=== PATIENT | male | born 1970 | race Caucasian/White ===

== ENCOUNTER 2020-03-05 12:36 | Outpatient (CLI) | payer OTHER, SELFPAY ==
--- NOTE | 2020-03-05 12:43 | XRR_ITS ---
PROCEDURE INFORMATION: Exam: XR Right Shoulder Exam date and time: 03/05/2020 12:56 PM Age: 49 years old Clinical indication: Right shoulder pain TECHNIQUE: Imaging protocol: XR Right shoulder. Views: 2 or more views. COMPARISON: No relevant prior studies available. FINDINGS: Bones/joints: No fracture. No dislocation. The glenohumeral and acromioclavicular joints are normal. The acromiohumeral interval is normal. Soft tissues: No acute soft tissue abnormality. XR/XR shoulder RT min 2V* [id number] IMPRESSION: No osseous abnormality.
== END 2020-03-05 12:37 | disposition home or self-care (01) ==
LOC: RAD 12:40
PROVIDERS: PCP Family Medicine; Visit Provider Family Medicine
DX: M25.511 Pain in right shoulder (principal)
CPT/HCPCS: 73030

== ENCOUNTER 2020-04-23 18:41 | Inpatient (IN) | payer OTHER, SELFPAY ==
[2020-04-23 18:50] VITALS: BP 136/87; PULSE 62; RESP 18; TEMP 36.5; O2SAT 98; BMI 33.0
--- NOTE | 2020-04-23 19:59 | ED_ITS ---
HPI - Abdominal Pain General: Chief Complaint: Abdominal Pain Stated Complaint: mid abdominal pain Time Seen by Provider: 04/23/20 19:52 Source: patient Mode of arrival: ambulatory Limitations: no limitations History of Present Illness: HPI narrative: 49-year-old male states he started having abdominal pain all of a sudden 3 today. He states its mid abdomen and is sharp in nature. He states he had a kidney stone 15 years ago and this felt similar. Patient denies any vomiting or diarrhea. He denies any worsening improving factors. He states pain is currently a 9 out of 10. MD elicited complaint: abdominal pain Pertinent past history: none Onset (ago): hour(s) Pain Consistency: constant Location: None Severity: severe Quality: stabbing Radiation: none Migration to: no migration Associated Symptoms: Denies chills, dysuria and fever(s) Review of Systems Const: Denies: fever(s), chills, body aches or change in appetite Eyes: Denies: blurry vision or eye discomfort ENMT: Denies: throat pain or dental pain Card: Denies: chest pain Resp: Denies: dyspnea GI: Reports: abdominal pain : Denies: dysuria Musc: Denies: neck pain or back pain Skin/Breast: Denies: rash Neuro: Denies: headache(s) Psych: Denies: depression Carlos/Lymph: Denies: easy bruising All/Imm: Denies: urticaria Physical Exam Const: COMMON NORMALS: no acute distress, patient oriented x3 and healthy appearing HENMT: COMMON NORMALS: normocephalic and atraumatic HEAD & SCALP: normocephalic and atraumatic Eye: COMMON NORMALS: Equal, round and reactive pupils present and EOMs intact bilaterally PUPIL: Yes Equal, round and reactive pupils present Neck/C-Spine: COMMON NORMALS: full ROM and supple Chest: COMMONS NORMALS: normal inspection of the chest and normal palpation of entire chest wall Resp: COMMON NORMALS: normal respiratory effort, No retractions, No use of accessory muscles and clear to auscultation bilaterally AUSCULTATION: clear to auscultation bilaterally Cardio: COMMON NORMALS: regular rate, regular rhythm and No murmurs present (Cardio) RATE: regular rate RHYTHM: regular rhythm GI: COMMON NORMALS: Normal to inspection, nondistended, normoactive bowel sounds present, Soft to palpation, non-tender and no masses PALPATION: Yes So ft to palpation Extremity: COMMON NORMALS: normal to inspection and full ROM Neuro: COMMON NORMALS: patient oriented x3, moves all extremities and no focal motor deficits Psych: COMMON NORMALS: mental status grossly normal, Normal thought process present and cooperative THOUGHT PROCESS: Normal thought process present Skin: COMMON NORMALS: no rashes or lesions noted and no wounds GENERAL SKIN EXAM: no rashes or lesions noted Course Vital Signs: Vital signs: Vital Signs Temperature 97.7 F 04/23/20 18:50 Pulse Rate 62 04/23/20 18:50 Respiratory Rate 22 H 04/23/20 21:08 Blood Pressure 136/87 04/23/20 18:50 Pulse Oximetry 99 04/23/20 21:08 MDM - Abdominal Pain MDM Narrative: Medical decision making narrative: Bill presents here with abdominal pain and CT shows small bowel obstruction. We will place an NG tube down. Patient's blood work here is normal there is no signs of perforation. I spoke to the hospitalist will admit at this time. Lab Data: Labs: Lab Results 04/23/20 04/23/20 04/23/20 Range/Units 21:00 21:00 21:05 WBC 9.5 (4.0-10.0) 10^3/ uL RBC 5.08 (4.1-5.3) 10^6/u L Hgb 15.9 (11.7-16.6) g/dL Hct 47.0 (42.0-52.0) % MCV 92.5 (80-94) fL MCH 31.3 (28.0-34.0) pg MCHC 33.8 (30.0-36.0) g/dL RDW 12.0 L (12.1-15.1) % Plt Count 274 (130-400) 10^3/c mm MPV 8.6 (7.4-10.4) fL Neut % (Auto) 79.0 % Lymph % (Auto) 18.0 % Iroquois % (Auto) 3.0 % Eos % (Auto) 0.0 % Baso % (Auto) 0.0 % Lymph # (Auto) Not Reportable Iroquois # (Auto) Not Reportable Sodium 134 L (136-145) mmol/L Potassium 3.9 (3.5-5.1) mmol/L Chloride 97 L (98-107) mmol/L Carbon Dioxide 28 (22-29) mmol/L Anion Gap 12.9 (5-19) BUN 13 (6-20) mg/dL Creatinine 0.8 (0.7-1.2) mg/dL GFR Calculation 101.9 (90-130) mL/min Glucose 96 (65-115) mg/dL Calculated Osmolal ity 278 L (285-295) mOsm/k g Calcium 10.3 (8.5-10.5) mg/dL Total Bilirubin 0.4 (0.15-1.2) mg/dL AST 25 (0-40) U/L ALT 20 (0-41) U/L Alkaline Phosphata se 63 (40-130) IU/L Total Protein 7.7 (6.6-8.7) g/dL Albumin 4.9 (3.5-5.2) g/dL Globulin 2.8 (1.3-4.6) g/dL Lipase 17 (13-60) U/L Urine Color Yellow (Yellow) Urine Appearance Cloudy A (CLEAR) Urine pH 9 H (5-7) Ur Specific Gravit y 1.020 (1.005-1.030) Urine Protein Neg (Negative) Urine Glucose (UA) Norm (Normal) Urine Ketones Negative (Negative) Urine Blood Neg (Negative) Urine Nitrate Negative (Negative) Urine Bilirubin Neg (Negative) Urine Urobilinogen Norm (Negative) mg/dL Ur Leukocyte Sonia ase Negative (Negative) Urine RBC None (0-2) /hpf Urine WBC None (0-5) /hpf Ur Squamous Epith Cells None (0-5) /hpf Amorphous Sediment Amorphous urates /hpf Urine Bacteria Trace (NONE) /hpf Imaging Data ^: CT Abd/Pel: Attestation: I personally reviewed and interpreted this imaging study as follows: Radiologist's impression: [address] [address] [address] Scan Report Signed with Catie Patient: Edgar Oconnell Unit #: [id number] : 1970 Age/Sex: 49 / M ADM Date: 04/23/20 Loc: ER Room/Bed: Attending Dr: Ordering Provider/Ordering MD: Angélica Hurtado MD Date of Service: 04/23/20 Procedure(s): CT abdomen pelvis w con* [id number] Accession Number(s): [id number] Report Number: [id number]/CT abdomen pelvis w con* [id number] THIS REPORT CONTAINS FINDINGS THAT MAY BE CRITICAL TO PATIENT CARE. The findings were verbally communicated via telephone conference with angélica Hurtado at 9:46 PM [facility] OR DEPARTMENT CHIEF LIBRARIAN on 04/23/2020. The findings were acknowledged and understood. Radiation Dose CTDIVOL = (mGy): DLP = 1342.73 (mGy-cm) Addendum Dictated By: Salbador Burt Addendum Signed By: Salbador Burt Signed Date/Time: 04/23/20 215 0 Addendum Cosigned By: PROCEDURE INFORMATION: Exam: CT Abdomen And Pelvis With Contrast Exam date and time: 04/23/2020 8:46 PM Age: 49 years old Clinical indication: Abdominal pain; Generalized; Additional info: Abd pain TECHNIQUE: Imaging protocol: Computed tomography of the abdomen and pelvis with intravenous contrast. Radiation optimization: All CT scans at this facility use at least one of these dose optimization techniques: automated exposure control; mA and/or kV adjustment per patient size (includes targeted exams where dose is matched to clinical indication); or iterative reconstruction. Contrast material: OMNI 300; Contrast volume: 95 ml; Contrast route: INTRAVENOUS (IV); COMPARISON: [facility] Abdomen 03/20/2015 9:42 AM RADIATION DOSE METRICS: Total DLP (mGy-cm): 1342.73 FINDINGS: Lungs: Limited assessment of the lung bases fails to reveal evidence for active cardiopulmonary process. Liver: Rare hepatic calcified granuloma of antecedent disease. Liver otherwise unremarkable. Gallbladder and bile ducts: Normal. No calcified stones. No ductal dilation. Pancreas: Normal. No ductal dilation. Spleen: Rare splenic calcified granuloma of antecedent disease. Spleen spleen otherwise unremarkable. Adrenal glands: Normal. No mass. Kidneys and ureters: Normal. No hydronephrosis. Stomach and bowel: Examination reveals evidence of a moderate grade partial distal small-bowel obstruction. Ectatic loops of jejunum and proximal ileal bowel loops to the right lower quadrant where there is a transition zone at the approximate level of series 2, image 46. Distal ileal bowel loops decompressed. Adhesions believed etiology for the obstruction. Moderate gastric distention. Appendix: The appendix is visualized and appears noninflamed. Intraperitoneal space: Small amount of free fluid in the pouch of Henderson. No visible evidence of mesenteric lymphadenitis or active mesenteritis/panniculitis. Vasculature: Unremarkable. No abdominal aortic aneurysm. Lymph nodes: No current visible evidence of active mesenteric or retroperitoneal lymphadenopathy. Urinary bladder: Unremarkable as visualized. Reproductive: Unremarkable as visualized. Bones/joints: Degenerative disc disease L5/S1. No visible acute osseous abnormality. Soft tissues: Unremarkable. CT/CT abdomen pelvis w con* [id number] IMPRESSION: 1. Findings consistent with moderate grade distal small-bowel obstruction transition zone right lower quadrant believed secondary to adhesions. 2. Small amount of free fluid in the pouch of Facundo. 3. Moderate gastric distention. 4. Evidence of antecedent granulomatous disease. Discharge Plan Discharge Patient Disposition: Admitted As Inpatient Clinical Impression: Small bowel obstruction Condition: Stable Coding Level of Care Code ED Insulator Apprentice for Chg Fwd Exam Comprehensive
[2020-04-23] MEDS: sodium chloride 0.9% 1,000 ML 999 ML IV (21:05)
[2020-04-23] MEDS: ondansetron 2 mg/ML SDV 2 mL 4 MG IVP (21:06)
[2020-04-23 21:08] VITALS: RESP 22; O2SAT 99
[2020-04-23] MEDS: HYDROmorphone 1 mg/mL INJ 1 mL IVP (21:08)
[2020-04-23 21:22] VITALS: BP 140/59; PULSE 89; RESP 16; O2SAT 99
[2020-04-23 21:22] LABS: Hemoglobin 15.9 g/dL (11.7-16.6); Mean Corpuscular HGB Conc 33.8 g/dL (30.0-36.0); Mean Corpuscular Hemoglobin 31.3 pg (28.0-34.0); Mean Corpuscular Volume 92.5 fL (80-94); Mean Platelet Volume 8.6 fL (7.4-10.4); Platelet Count 274 10^3/cmm (130-400); Red Blood Count 5.08 10^6/uL (4.1-5.3); White Blood Count 9.5 10^3/uL (4.0-10.0)
[2020-04-23] MEDS: iohexol 300 mg/mL 100 mL Btl IV (21:27)
[2020-04-23 21:35] LABS: Alanine Aminotransferase 20 U/L (0-41); Albumin Level 4.9 g/dL (3.5-5.2); Alkaline Phosphatase 63 IU/L (40-130); Anion Gap 12.9 (5-19); Aspartate Amino Transferase 25 U/L (0-40); Blood Urea Nitrogen 13 mg/dL (6-20); Calcium 10.3 mg/dL (8.5-10.5); Carbon Dioxide 28 mmol/L (22-29); Chloride 97 mmol/L (98-107); Globulin 2.8 g/dL (1.3-4.6); Glomerular Filtration Rate 101.9 mL/min (90-130); Glucose 96 mg/dL (65-115); Lipase 17 U/L (13-60); Osmolality Calculated 278 mOsm/kg (285-295); Potassium 3.9 mmol/L (3.5-5.1); Sodium 134 mmol/L (136-145); Total Bilirubin 0.4 mg/dL (0.15-1.2); Total Protein 7.7 g/dL (6.6-8.7)
[2020-04-23 22:09] LABS: Urine Appearance Cloudy (CLEAR); Urine Color Yellow (Yellow)
[2020-04-23 22:10] LABS: Bacteria Urine TRACE /hpf; Bilirubin Urine Neg (Negative); Blood Urine Neg (Negative); Glucose Urine UA Norm (Normal); Ketones Urine Negative (Negative); Leukocyte Esterase Urine Negative (Negative); Nitrate Urine Negative (Negative); Protein Urine Neg (Negative); Urobilinogen Urine Norm (Negative); pH Urine 9 (5-7)
[2020-04-23 22:11] LABS: Add Urine Culture? No; Amorphous Sediment Urine AMORPHOUS URATES /hpf
--- NOTE | 2020-04-23 22:16 | PM.HP ---
Providers/Chief Complaint Primary Care Provider: Rosas Arazu MD Chief Complaint: mid abdominal pain History of Present Illness Edgar Oconnell is a 49 year old male who carries no significant medical or surgical history came in with chief complain abdominal pain. Patient is stating that he has been having abdominal pain today after lunch, and lunch he ate nuts and pizza and then started experiencing abdominal pain which gradually got worse, because of worsening of pain he decided to come to the ED for further evaluation, he felt nauseous but never experienced any vomiting, diarrhea. He is denying night sweats, fever, weight loss, history of GI cancer in the family, previous history of surgeries, change in bowel movements. He does not take any medications, only medication that he takes is multivitamins. Diagnostics in the ER revealed distal small bowel obstruction, NG tube will be placed in the ER, at the time my evaluation normal hemodynamics, abdominal pain subsided after Dilaudid, is at the bedside, Review of Systems Const: Denies: fever(s) or chills Eyes: Denies: change in vision ENMT: Denies: throat pain Card: Denies: chest pain Resp: Denies: dyspnea GI: Reports: abdominal pain and nausea; Denies: vomiting, heartburn, diarrhea or constipation : Denies: flank pain or difficulty urinating Musc: Denies: neck pain Skin/Breast: Denies: rash Neuro: Denies: headache(s) Psych: Denies: anxiety Endo: Denies: polyuria Carlos/Lymph: Denies: easy bruising All/Imm: Denies: urticaria Medications/Allergies Home Medications Medication Instructions Recorded Confirmed Last Taken Type Fish Oil 1 cap PO DAILY 04/23/20 04/23/20 04/23/20 History fluticasone propionate [Flonase] 1 spray INTRANASAL Q12H 04/23/20 04/23/20 04/23/20 History busohqga-irh-ddcklrs gluconate 15 ml PO DAILY 04/23/20 04/23/20 04/23/20 History [Multi-Maxwell] Allergies Allergy/AdvReac Type Severity Reaction Status Date / Time No Known Allergies Allergy Verified 04/23/20 18:52 PFSH Acute PFSH: Medical History No pertinent past medical history Surgical History No pertinent past surgical history Family History Family/Other Cancer Uncle had diagnosis of cholangiocarcinoma Social History Smoking and tobacco status: never smoked Alcohol intake: current Alcohol intake frequency: few times a week Alcohol type: beer Substance/Drug Use: never Household members: spouse Housing: House Marital status: Vitals/I&O/Wt Last Vital Signs Temp 97.7 F 04/23/20 18:50 Pulse 62 04/23/20 18:50 Resp 22 H 04/23/20 21:08 BP 136/87 04/23/20 18:50 Pulse Ox 99 04/23/20 21:08 Weight last 48 hrs Weight 104.326 kg Physical Exam Narrative: EXAM NARRATIVE: Middle-age male currently in comfortable in his bed No active distress, hemodynamically stable Appears stated age No active severe abdominal pain, abdomen is soft nontender bowel sounds present hyperactive, no active signs of peritonitis Patient is not experiencing emesis S1, S2 no tachycardia or signs of heart failure No acute respiratory distress Lower extremity no edema gangrene or ulcer EOMI, PERRLA No neurological deficit Appropriate mood and affect Data : 04/23/20 21:00 04/23/20 21:00 A&P Assessment and plan (1) Small bowel obstruction: Acute small bowel obstruction No previous history of surgeries, denying fever, night sweats, weight loss, change in bowel habits Conservative management for now NG tube will be placed, No signs of peritonitis No need of urgent surgical consult N.p.o., D5 half-normal saline fluid resuscitation, antiemetic and Dilaudid for now Consider general surgery consult in the morning, he will need endoscopy down the road, denying family history of GI cancer, no history of inflammatory bowel disease Status: Acute Additional A&P Information DVT prophylaxis SCDs, would avoid anticoagulation in case he would require surgical intervention N.p.o. Full code No electrolyte abnormality Attestations Medical Necessity Statement*: Anticipating stay in the hospital to cross more than 2 midnights for management of small bowel obstruction Time Spent in Patient Care: (>than 50% of time spent in counselling and/or direct pt care on unit). 35mins Coding Level of Care Code Acute Household Coordinator for Chg Fwd Diagnoses Small bowel obstruction K56.609
[2020-04-23 22:22] VITALS: BP 149/65; PULSE 88; RESP 18; O2SAT 97
[2020-04-23 22:27] LABS: Slide Review Slide Review Perform
[2020-04-23 23:22] VITALS: BP 157/61; PULSE 82; RESP 18; O2SAT 95
--- NOTE | 2020-04-23 23:37 | PC.NURSE ---
during pt rounding, pt states his pain is returning. Dr notified, vo obtained for 1mg of dilaudid
--- NOTE | 2020-04-23 23:57 | XR_ITS ---
WS: [id number] Portable AP upright chest, 04/24/2020 Clinical Data: NG tube placement Comparison: None. Findings: The nasogastric tube appears to end within the stomach. No nodules, masses or effusions are seen. The heart is normal. The pulmonary vascularity is not increased. No pneumonia or pneumothorax is seen. The aortic arch is tortuous. XR/XR chest 1V [id number] Impression: 1. Satisfactory placement of nasogastric tube ending in stomach. 2. Atherosclerosis.
[2020-04-24] VITALS (10 sets, daily range): BP systolic 123–171; BP diastolic 69–93; PULSE 51–94; RESP 15–18; TEMP 36.4–37.2; O2SAT 93–97
--- NOTE | 2020-04-24 01:23 | PC.NURSE ---
This RN agrees with pastoral counselor assessment
[2020-04-24] MEDS: dextrose 5%-sod chloride 0.45% 1,000 ML 100 ML IV ×3 (01:39→22:05)
--- NOTE | 2020-04-24 01:46 | PC.NURSE ---
Addendum entered by Codie Ray 04/24/20 02:49: devulcanizer charger notified of med documentation Original Note: unable to document in MAR 1mg of dilaudid adm 04/23/20 2330 and 1mg of ativan adm 0015 04/24/20. Ativan witnessed in pyxis
[2020-04-24 05:22] LABS: Basophils % 0.2 %; Eosinophils # 0.1 10^3/uL (0.0-0.8); Eosinophils % 0.7 %; Hematocrit 45.6 % (42.0-52.0); Hemoglobin 14.9 g/dL (11.7-16.6); Lymphocytes # 1.7 10^3/uL (0.8-4.8); Lymphocytes % 19.8 %; Mean Corpuscular HGB Conc 32.7 g/dL (30.0-36.0); Mean Corpuscular Hemoglobin 31.2 pg (28.0-34.0); Mean Corpuscular Volume 95.4 fL (80-94); Mean Platelet Volume 8.5 fL (7.4-10.4); Monocytes # 0.5 10^3/uL (0.2-0.9); Monocytes % 5.9 %; Neutrophils # 6.22 10^3/uL (1.8-7.7); Nucleated Red Blood Cells % 0 %; Platelet Count 249 10^3/cmm (130-400); Red Blood Count 4.78 10^6/uL (4.1-5.3); Red Cell Distribution Width 12.2 % (12.1-15.1); White Blood Count 8.5 10^3/uL (4.0-10.0)
[2020-04-24 06:01] LABS: Alanine Aminotransferase 18 U/L (0-41); Albumin Level 4.3 g/dL (3.5-5.2); Alkaline Phosphatase 55 IU/L (40-130); Anion Gap 13.2 (5-19); Aspartate Amino Transferase 15 U/L (0-40); Blood Urea Nitrogen 13 mg/dL (6-20); Calcium 9.3 mg/dL (8.5-10.5); Carbon Dioxide 28 mmol/L (22-29); Chloride 104 mmol/L (98-107); Globulin 2.3 g/dL (1.3-4.6); Glucose 121 mg/dL (65-115); Osmolality Calculated 293 mOsm/kg (285-295); Potassium 4.2 mmol/L (3.5-5.1); Sodium 141 mmol/L (136-145); Total Bilirubin 0.3 mg/dL (0.15-1.2); Total Protein 6.6 g/dL (6.6-8.7)
[2020-04-24] MEDS: HYDROmorphone 1 mg/mL INJ 1 mL 2 MG IVP ×2 (08:05→16:41)
--- NOTE | 2020-04-24 10:55 | PC.CHAP ---
Pastoral Care Encounter/Spiritual Assessment Type of Contact [] Declined registered travel nurse visit [] Patient/Family/Request visit [] Outpatient visit [] Follow-up visit [] Physician referral [] Code/Alert [x] Routine visit [] Staff referral [] Actively dying [] Patient sleeping [] Family support [] [] Out of room [] Palliative care [] [x] Receiving care in room [] Pre-surgical visit [] Trauma [] Long length of stay [] ICU visit [] Other: Relational/Emotional Strength [x] Patient feels connected with others/family/visitors/staff [] Distress [] Loneliness/isolation [] Abandonment Spirituality of Patient [x] Person of Do [] Attends Pentecostal of their Do [x] Believes in Prayer [] Reads Bible or Hoahaoism materials [] There are Spiritual issues to be addressed Director Of Maintenance Interventions [x] Prayer [x] Active listening [x] Non-anxious presence [x] Spiritual/emotional support [] Crisis/trauma care [x] Spiritual counseling [] Bereavement support [] Provided bereavement packet [] Provided Bible/devotional materials [] Provided toy/stuffed animal, coloring book to patient or family member [] Provided Communion [] Anointing/[place] [] Salvation [x] Completed spiritual assessment [] Other: Impact on Illness or Injury [] Angry [] Fearful [x] Anxious [] Often cries [] Exhaustion [] Unable to work [] Unable to attend mu-ism [] Unable to walk/stand [] Unable to read [] Unable to drive [] Unable to eat/drink [] Unable to sleep [] Unable to be with family [] Patient intubated [] Other: Summary is in pain taking pain meds, was able to communicate has a good attitude wants ti go home soon Time spent with patient 10 mins
[2020-04-24] MEDS: ondansetron 2 mg/ML SDV 2 mL 4 MG IVP (11:28)
--- NOTE | 2020-04-24 16:04 | P.PN_ITS ---
Subjective Subjective: Interval history: Had 160 mL output from NGT. Has had additional output from NG tube throughout the day, denies passing gas and no bowel movements. Remains NPO. Reports increased abdominal discomfort whenever pain medications wear off. Case discussed with his primary care provider who notes that patient's had called his office earlier this afternoon; patient is not a pain-seeker so whatever he in endorsing in terms of pain is likely genuine. Medications: Reviewed: Yes Medication Review Details: Active Medications Generic Name Dose Route Start Last Admin Trade Name Freq PRN Reason Stop Dose Admin Hydromorphone HCl 2 mg 04/24/20 01:21 04/24/20 08:05 Hydromorphone 1 Mg/Ml Inj 1 Ml IVP 2 mg Q4H PRN Administration pain Dextrose/Sodium Ch loride 1,000 mls @ 100 m ls/hr 04/24/20 01:21 04/24/20 11:32 Dextrose 5%-Sod Chloride 0.45% IV 100 mls/hr .Q10H NYLA Administration Ondansetron HCl 4 mg 04/24/20 01:21 04/24/20 11:28 Ondansetron 2 Mg /Ml Sdv 2 Ml IVP 4 mg Q6H PRN Administration NAUSEA AND VOMITI NG No Known Allergies Allergy (Verified 04/23/20 18:52) Vitals/I&O/Wt Last Vital Signs Temp 98.4 F 04/24/20 15:44 Pulse 61 04/24/20 15:44 Resp 15 04/24/20 15:44 BP 123/80 04/24/20 15:44 Pulse Ox 94 04/24/20 15:44 04/24/20 04/24/20 04/24/20 06:59 14:59 22:59 Intake Total 988.333 / 988.333 Output Total 160 / 160 425 / 425 Balance -160 / -160 563.333 / 563.333 Weight last 48 hrs Weight 104.326 kg Physical Exam Const: COMMON NORMALS: no acute distress, patient oriented x3 and alert GENERAL APPEARANCE: cooperative and comfortable ORIENTATION/CONSCIOUSNESS: Yes awake HENMT: COMMON NORMALS: normocephalic, atraumatic and hearing grossly normal bilaterally HEAD & SCALP: normocephalic and atraumatic NOSE: Other nasal findings present (NG tube in place (R nare)) MOUTH: moist mucous membranes abnormal Details: parched Eye: COMMON NORMALS: Equal, round and reactive pupils present, EOMs intact bilaterally and conjunctivae normal CONJUNCTIVA: Yes conjunctivae normal PUPIL: Yes Equal, round and reactive pupils present Neck/C-Spine: COMMON NORMALS: full ROM GENERAL: Yes normal visual inspection and Yes trachea midline Resp: COMMON NORMALS: normal respiratory effort, No retractions, No use of accessory muscles and clear to auscultation bilaterally EFFORT & INSPECTION: Yes able to speak in complete sentences, Yes symmetric chest movement and No tachypneic AUSCULTATION: clear to auscultation bilaterally OTHER: -on RA Cardio: COMMON NORMALS: regular rate, regular rhythm, S1 normal heart sound present, S2 normal heart sound present and No murmurs present (Cardio) RATE: regular rate RHYTHM: regular rhythm HEART SOUNDS: S1 normal heart sound present and S2 normal heart sound present GI: COMMON NORMALS: Soft to palpation and non-tender INSPECTION: No abdominal distension and Yes central obesity AUSCULTATION: Yes Hypoactive bowel sounds present PALPATION: Yes Soft to palpation, No Guarding due to palpation present (GI) and No Rigid due to palpation Extremity: COMMON NORMALS: normal to inspection, full ROM and no clubbing, cyanosis or edema; negative for no pedal edema Neuro: COMMON NORMALS: patient oriented x3, moves all extremities, no focal motor deficits and no sensory deficits noted SENSORIUM/ORIENTATION: Yes alert Psych: COMMON NORMALS: mental status grossly normal, Normal thought process present, cooperative, normal affect and speech normal SPEECH: Yes normal speech THOUGHT PROCESS: Normal thought process present Skin: COMMON NORMALS: no rashes or lesions noted, no jaundice, no petechiae and no mottling GENERAL SKIN EXAM: no rashes or lesions noted Data : 04/24/20 04:30 04/24/20 04:30 A&P Assessment and plan (1) Small bowel obstruction: -noted evidence of moderate grade distal SBO, transition zone in RLQ, also noted to have adhesions -has NGT in place; continue to monitor output -NPO, antiemetics and pain control as needed -IVF hydration -continue to monitor vital signs -discuss case with general surgery in AM in light of continued NGT output, transition point on imaging, pain control Status: Acute Additional A&P Information -noted moderate gastric distention on CT -morbid obesity: BMI-33 kg/m2 -NPO -DVT ppx with SCDs -Dispo: home -Code status: FULL code Attestations Medical Necessity Statement*: Patient requires hospitalization for continued management of small bowel obstruction, has NGT in place. Time Spent in Patient Care: 16 - 35 minutes (>than 50% of time spent in counselling and/or direct pt care on unit) . Coding Level of Care Code Acute Production Packager for Chg Fwd Exam Comprehensive Diagnoses Small bowel obstruction K56.609
[2020-04-25] VITALS (9 sets, daily range): BP systolic 120–145; BP diastolic 75–84; PULSE 54–65; RESP 14–20; TEMP 36.5–37.1; O2SAT 93–95
--- NOTE | 2020-04-25 00:30 | PC.NURSE ---
Patient complained of pain. Nurse was notified.
[2020-04-25] MEDS: HYDROmorphone 1 mg/mL INJ 1 mL 2 MG IVP ×3 (00:41→16:32)
--- NOTE | 2020-04-25 04:41 | PC.NURSE ---
This nurse spoke to patient's Kassie on the phone this evening around 10 pm. Patient's requested an update on plan of care from the doctor in the morning. Nurse agreed to pass request to day shift.
[2020-04-25 04:58] LABS: Anion Gap 11.7 (5-19); Blood Urea Nitrogen 12 mg/dL (6-20); Carbon Dioxide 31 mmol/L (22-29); Chloride 101 mmol/L (98-107); Glomerular Filtration Rate 101.9 mL/min (90-130); Glucose 109 mg/dL (65-115); Osmolality Calculated 290 mOsm/kg (285-295); Potassium 3.7 mmol/L (3.5-5.1); Sodium 140 mmol/L (136-145)
[2020-04-25 05:00] LABS: Basophils % 0.3 %; Eosinophils % 0.4 %; Hematocrit 46.9 % (42.0-52.0); Hemoglobin 15.3 g/dL (11.7-16.6); Lymphocytes # 2.3 10^3/uL (0.8-4.8); Lymphocytes % 22.4 %; Mean Corpuscular HGB Conc 32.6 g/dL (30.0-36.0); Mean Corpuscular Volume 94.9 fL (80-94); Mean Platelet Volume 8.6 fL (7.4-10.4); Monocytes # 0.7 10^3/uL (0.2-0.9); Neutrophils # 7.12 10^3/uL (1.8-7.7); Neutrophils % 69.7 %; Nucleated Red Blood Cells % 0 %; Platelet Count 265 10^3/cmm (130-400); Red Blood Count 4.94 10^6/uL (4.1-5.3); Red Cell Distribution Width 12.1 % (12.1-15.1); White Blood Count 10.2 10^3/uL (4.0-10.0)
[2020-04-25] MEDS: dextrose 5%-sod chloride 0.45% 1,000 ML 100 ML IV ×2 (07:14→19:31)
[2020-04-25] MEDS: ondansetron 2 mg/ML SDV 2 mL 4 MG IVP (09:59)
--- NOTE | 2020-04-25 10:59 | XR_ITS ---
WS: [id number] Acute abdomen series, 04/25/2020 Clinical Data: progression of SBO Comparison: Portable chest, 04/24/2020, CT abdomen and pelvis, 04/23/2020. Findings: In the chest there are no nodules, masses or effusions. The heart is normal. The pulmonary vascularity is not increased. The nasogastric tube ends in the stomach. No free air is seen beneath the diaphragms. No abnormal intra-abdominal masses or calcifications are seen. The nasogastric tube ends in the region of the stomach. There are air-fluid levels noted in the left upper quadrant. The inferior abdomen is gasless which implies that the small bowel loops are fl uid-filled and this is consistent with a small bowel obstruction. XR/XR acute abdomen series [id number] Impression: 1. Nasogastric tube ends in the stomach. 2. Gasless abdomen with left upper quadrant air-fluid levels which is consisten t with a small bowel obstruction.
--- NOTE | 2020-04-25 11:00 | P.PN_ITS ---
Subjective Subjective: Interval history: Hemodynamically stable, afebrile, had 400 mL NGT output overnight. Required a total of 4 mg of IV dilaudid for pain control. Abdomen x-ray pending. Ordered milk of molasses enema which resulted in liquid bowel movement with some soft chunks. Has had about 400 mL output throughout this shift in terms of NG tube output. Shifting restlessly in bed during my encounter, at bedside. Case discussed briefly with Dr. Fierro earlier this morning. Medications: Reviewed: Yes Medication Review Details: Active Medications Generic Name Dose Route Start Last Admin Trade Name Freq PRN Reason Stop Dose Admin Hydromorphone HCl 2 mg 04/24/20 01:21 04/25/20 06:44 Hydromorphone 1 Mg/Ml Inj 1 Ml IVP 2 mg Q4H PRN Administration pain Dextrose/Sodium Ch loride 1,000 mls @ 100 m ls/hr 04/24/20 01:21 04/25/20 07:14 Dextrose 5%-Sod Chloride 0.45% IV 100 mls/hr .Q10H NYLA Administration Ondansetron HCl 4 mg 04/24/20 01:21 04/25/20 09:59 Ondansetron 2 Mg /Ml Sdv 2 Ml IVP 4 mg Q6H PRN Administration NAUSEA AND VOMITI NG No Known Allergies Allergy (Verified 04/23/20 18:52) Vitals/I&O/Wt Last Vital Signs Temp 98.6 F 04/25/20 07:32 Pulse 54 L 04/25/20 07:32 Resp 15 04/25/20 07:32 BP 121/75 04/25/20 07:32 Pulse Ox 93 04/25/20 07:32 04/24/20 04/25/20 04/25/20 22:59 06:59 14:59 Intake Total 1000 / 1988.333 915 / 915 Output Total 400 / 825 0 / 825 Balance 600 / 1163.333 0 / 1163.333 915 / 915 Weight last 48 hrs Weight 104.326 kg Physical Exam Const: COMMON NORMALS: no acute distress, patient oriented x3 and alert GENERAL APPEARANCE: cooperative ORIENTATION/CONSCIOUSNESS: Yes awake OTHER: -Shifting restlessly in bed HENMT: COMMON NORMALS: normocephalic, atraumatic and hearing grossly normal bilaterally HEAD & SCALP: normocephalic and atraumatic NOSE: Other nasal findings present (NG tube in place (R nare)) MOUTH: moist mucous membranes abnormal Details: parched Eye: COMMON NORMALS: Equal, round and reactive pupils present, EOMs intact bilaterally and conjunctivae normal CONJUNCTIVA: Yes conjunctivae normal PUPIL: Yes Equal, round and reactive pupils present Neck/C-Spine: COMMON NORMALS: full ROM GENERAL: Yes normal visual inspection and Yes trachea midline Resp: COMMON NORMALS: normal respiratory effort, No retractions, No use of accessory muscles and clear to auscultation bilaterally EFFORT & INSPECTION: Yes able to speak in complete sentences, Yes symmetric chest movement and No tachypneic AUSCULTATION: clear to auscultation bilaterally OTHER: -on RA Cardio: COMMON NORMALS: regular rate, regular rhythm, S1 normal heart sound present, S2 normal heart sound present and No murmurs present (Cardio) RATE: regular rate RHYTHM: regular rhythm HEART SOUNDS: S1 normal heart sound present and S2 normal heart sound present GI: COMMON NORMALS: Soft to palpation and non-tender INSPECTION: No abdominal distension and Yes central obesity AUSCULTATION: Yes Other GI auscultation findings (more active bowel sounds today) PALPATION: Yes Soft to palpation, No Guarding due to palpation present (GI) and No Rigid due to palpation Extremity: COMMON NORMALS: normal to inspection, full ROM and no clubbing, cyanosis or edema; negative for no pedal edema Neuro: COMMON NORMALS: patient oriented x3, moves all extremities, no focal motor deficits and no sensory deficits noted SENSORIUM/ORIENTATION: Yes alert Psych: COMMON NORMALS: mental status grossly normal, Normal thought process present, cooperative, normal affect and speech normal SPEECH: Yes normal speech THOUGHT PROCESS: Normal thought process present Skin: COMMON NORMALS: no rashes or lesions noted, no jaundice, no petechiae and no mottling GENERAL SKIN EXAM: no rashes or lesions noted Data : 04/25/20 03:12 04/25/20 03:12 A&P Assessment and plan (1) Small bowel obstruction: -noted evidence of moderate grade distal SBO, transition zone in RLQ, also noted to have adhesions -has NGT in place; continue to monitor output -NPO, antiemetics and pain control as needed -IVF hydration -continue to monitor vital signs -discussed case with general surgery in AM in light of continued NGT output, transition point on imaging, pain control. Given enema -abdomen x-ray today shows LUQ air-fluid levels consistent with SBO Status: Acute Additional A&P Information -noted moderate gastric distention on CT -morbid obesity: BMI-33 kg/m2 -NPO -DVT ppx with SCDs -Dispo: home -Code status: FULL code Attestations Medical Necessity Statement*: Patient requires hospitalization for continued management of small bowel obstruction, remains NPO, has NGT in place. Time Spent in Patient Care: 16 - 35 minutes (>than 50% of time spent in counselling and/or direct pt care on unit) . Coding Level of Care Code Acute Panel Instrument Repairer for Chg Fwd Exam Comprehensive Diagnoses Small bowel obstruction K56.609
--- NOTE | 2020-04-25 13:19 | PC.NURSE ---
NG Flushed with tap water 50mls. Pt tolerated well.
[2020-04-26] VITALS (10 sets, daily range): BP systolic 113–148; BP diastolic 68–87; PULSE 52–71; RESP 16–20; TEMP 36.4–37.3; O2SAT 93–99
[2020-04-26] MEDS: HYDROmorphone 1 mg/mL INJ 1 mL 2 MG IVP ×3 (01:15→22:35)
[2020-04-26] MEDS: dextrose 5%-sod chloride 0.45% 1,000 ML 100 ML IV ×3 (03:52→23:53)
[2020-04-26 06:01] LABS: Basophils % 0.3 %; Eosinophils # 0.1 10^3/uL (0.0-0.8); Eosinophils % 0.6 %; Hematocrit 44.4 % (42.0-52.0); Hemoglobin 14.8 g/dL (11.7-16.6); Lymphocytes # 2.4 10^3/uL (0.8-4.8); Lymphocytes % 24.4 %; Mean Corpuscular HGB Conc 33.3 g/dL (30.0-36.0); Mean Corpuscular Hemoglobin 31.2 pg (28.0-34.0); Mean Corpuscular Volume 93.7 fL (80-94); Mean Platelet Volume 8.4 fL (7.4-10.4); Monocytes # 0.9 10^3/uL (0.2-0.9); Monocytes % 9.8 %; Neutrophils # 6.24 10^3/uL (1.8-7.7); Neutrophils % 64.7 %; Nucleated Red Blood Cells % 0 %; Platelet Count 238 10^3/cmm (130-400); Red Blood Count 4.74 10^6/uL (4.1-5.3); Red Cell Distribution Width 11.9 % (12.1-15.1); White Blood Count 9.6 10^3/uL (4.0-10.0)
[2020-04-26 06:58] LABS: Anion Gap 12.8 (5-19); Blood Urea Nitrogen 12 mg/dL (6-20); Calcium 9.2 mg/dL (8.5-10.5); Carbon Dioxide 29 mmol/L (22-29); Chloride 102 mmol/L (98-107); Glomerular Filtration Rate 101.9 mL/min (90-130); Glucose 118 mg/dL (65-115); Osmolality Calculated 291 mOsm/kg (285-295); Potassium 3.8 mmol/L (3.5-5.1); Sodium 140 mmol/L (136-145)
--- NOTE | 2020-04-26 08:00 | XRR_ITS ---
PROCEDURE INFORMATION: Exam: XR Abdomen, 1 View Exam date and time: 04/26/2020 12:00 AM Age: 49 years old Clinical indication: Abdominal pain; Generalized; Additional info: Bowel gas pattern. Ng tube, sbo TECHNIQUE: Imaging protocol: XR of the abdomen. Views: Frontal supine view of the abdomen. 1 View. COMPARISON: CR XR acute abdomen series [id number] 04/25/2020 3:57 PM FINDINGS: Gastrointestinal tract: Intraluminal gas is seen to the level of the rectum. Paucity of bowel gas centrally. Partial gas distended small bowel confluent segments in the central upper abdomen approaching 3.9 cm in diameter. Intraperitoneal space: The uppermost abdomen is not included. Partial visualization of endotracheal tube tip at the medial left upper quadrant. Bones/joints: Unremarkable. XR/XR abdomen 1V* [id number] IMPRESSION: Limited assessment of detailed bowel-gas pattern by only a single image. There is gas distention of small bowel in the superior abdomen with paucity of bowel gas centrally which could reflect fluid-filled bowel in the setting of mechanical obstruction which could be could be incomplete.
--- NOTE | 2020-04-26 10:52 | PM.PN ---
Subjective Subjective: Interval history: NGT remains in place, had about 300 mL output last night, urine output of 450 mL, more gas visible on xray today, not yet passing flatus. Will give enema. Had. Moderate to large liquid bowel movement with softer stool mixed in. Does feel better following bowel movement and did pass a little bit of gas this morning. Will clamp NG tube and trial on sips and chips. Medications: Reviewed: Yes Medication Review Details: Active Medications Generic Name Dose Route Start Last Admin Trade Name Freq PRN Reason Stop Dose Admin Hydromorphone HCl 2 mg 04/24/20 01:21 04/26/20 01:15 Hydromorphone 1 Mg/Ml Inj 1 Ml IVP 2 mg Q4H PRN Administration pain Dextrose/Sodium Ch loride 1,000 mls @ 100 m ls/hr 04/24/20 01:21 04/26/20 03:52 Dextrose 5%-Sod Chloride 0.45% IV 100 mls/hr .Q10H NYLA Administration Ondansetron HCl 4 mg 04/24/20 01:21 04/25/20 09:59 Ondansetron 2 Mg /Ml Sdv 2 Ml IVP 4 mg Q6H PRN Administration NAUSEA AND VOMITI NG No Known Allergies Allergy (Verified 04/23/20 18:52) Vitals/I&O/Wt Last Vital Signs Temp 98.6 F 04/26/20 07:54 Pulse 71 04/26/20 07:54 Resp 18 04/26/20 07:54 BP 128/82 04/26/20 07:54 Pulse Ox 95 04/26/20 07:54 04/25/20 04/26/20 04/26/20 22:59 06:59 14:59 Intake Total 1000 / 1915 835 / 2750 Output Total 1075 / 1075 450 / 1525 650 / 650 Balance -75 / 840 385 / 1225 -650 / -650 Physical Exam Const: COMMON NORMALS: no acute distress, patient oriented x3 and alert GENERAL APPEARANCE: cooperative ORIENTATION/CONSCIOUSNESS: Yes awake OTHER: -Shifting restlessly in bed HENMT: COMMON NORMALS: normocephalic, atraumatic and hearing grossly normal bilaterally HEAD & SCALP: normocephalic and atraumatic NOSE: Other nasal findings present (NG tube in place (R nare)) MOUTH: moist mucous membranes abnormal Details: parched Eye: COMMON NORMALS: Equal, round and reactive pupils present, EOMs intact bilaterally and conjunctivae normal CONJUNCTIVA: Yes conjunctivae normal PUPIL: Yes Equal, round and reactive pupils present Neck/C-Spine: COMMON NORMALS: full ROM GENERAL: Yes normal visual inspection and Yes trachea midline Resp: COMMON NORMALS: normal respiratory effort, No retractions, No use of accessory muscles and clear to auscultation bilaterally EFFORT & INSPECTION: Yes able to speak in complete sentences, Yes symmetric chest movement and No tachypneic AUSCULTATION: clear to auscultation bilaterally OTHER: -on RA Cardio: COMMON NORMALS: regular rate, regular rhythm, S1 normal heart sound present, S2 normal heart sound present and No murmurs present (Cardio) RATE: regular rate RHYTHM: regular rhythm HEART SOUNDS: S1 normal heart sound present and S2 normal heart sound present GI: COMMON NORMALS: Soft to palpation and non-tender INSPECTION: No abdominal distension and Yes central obesity AUSCULTATION: Yes Other GI auscultation findings (more active bowel sounds today) PALPATION: Yes Soft to palpation, No Guarding due to palpation present (GI) and No Rigid due to palpation Extremity: COMMON NORMALS: normal to inspection, full ROM and no clubbing, cyanosis or edema; negative for no pedal edema Neuro: COMMON NORMALS: patient oriented x3, moves all extremities, no focal motor deficits and no sensory deficits noted SENSORIUM/ORIENTATION: Yes alert Psych: COMMON NORMALS: mental status grossly normal, Normal thought process present, cooperative, normal affect and speech normal SPEECH: Yes normal speech THOUGHT PROCESS: Normal thought process present Skin: COMMON NORMALS: no rashes or lesions noted, no jaundice, no petechiae and no mottling GENERAL SKIN EXAM: no rashes or lesions noted Data : 04/26/20 05:41 04/26/20 05:41 A&P Assessment and plan (1) Small bowel obstruction: -noted evidence of moderate grade distal SBO, transition zone in RLQ, also noted to have adhesions -has NGT in place; continue to monitor output. Will try to clamp and monitor response today -NPO, antiemetics and pain control as needed -IVF hydration -continue to monitor vital signs -discussed case with general surgery in AM in light of continued NGT output, transition point on imaging, pain control. Given enema -abdomen x-ray today shows more air but continued though partial obstruction Status: Acute Additional A&P Information -noted moderate gastric distention on CT -morbid obesity: BMI-33 kg/m2 -NPO -DVT ppx with SCDs -Dispo: home -Code status: FULL code Attestations Medical Necessity Statement*: Patient requires hospitalization for continued management of small bowel obstruction, NGT remains in place. Time Spent in Patient Care: 16 - 35 minutes (>than 50% of time spent in counselling and/or direct pt care on unit). Coding Level of Care Code Acute Patient Service Rep for Chg Fwd Exam Comprehensive Diagnoses Small bowel obstruction K56.609
[2020-04-26] MEDS: ondansetron 2 mg/ML SDV 2 mL 4 MG IVP (15:24)
[2020-04-26] MEDS: famotidine 20 mg/2 mL INJ IVP (18:26)
[2020-04-26] MEDS: calcium carbonate 500 mg Chew Tablet PO ×2 (18:26→22:23)
[2020-04-27] VITALS (7 sets, daily range): BP systolic 119–125; BP diastolic 74–78; PULSE 53–61; RESP 14–18; TEMP 36.6–37.2; O2SAT 93–99
[2020-04-27] MEDS: calcium carbonate 500 mg Chew Tablet PO ×2 (05:17→09:20)
[2020-04-27] MEDS: famotidine 20 mg/2 mL INJ IVP ×2 (06:34→17:17)
[2020-04-27] MEDS: dextrose 5%-sod chloride 0.45% 1,000 ML 100 ML IV ×2 (09:20→18:54)
[2020-04-27] MEDS: HYDROmorphone 1 mg/mL INJ 1 mL 2 MG IVP ×2 (11:32→22:44)
--- NOTE | 2020-04-27 12:04 | PM.PN ---
Subjective Subjective: Interval history: On clear liquid diet, hemodynamically stable, had 700 mL urine output overnight. Seen ambulating in hallway, reports more abdominal fullness and burning epigastric pain, relates a hx of ulcers. Upon return to room, NGT reconnected to suction with output of about 250 mL this afternoon, output has since slowed down and he does feel better. Back to NPO for now. Not passing gas yet and no further BMs. Medications: Reviewed: Yes Medication Review Details: Active Medications Generic Name Dose Route Start Last Admin Trade Name Freq PRN Reason Stop Dose Admin Calcium Carbonate 500 mg 04/26/20 18:08 04/27/20 09:20 Calcium Carbonat e 500 Mg Chew Tabl et PO 500 mg Q4H PRN Administration INDIGESTION Famotidine 20 mg 04/26/20 18:15 04/27/20 06:34 Famotidine 20 Mg /2 Ml Inj IVP 20 mg Q12H NYLA Administration Hydromorphone HCl 2 mg 04/24/20 01:21 04/27/20 11:32 Hydromorphone 1 Mg/Ml Inj 1 Ml IVP 2 mg Q4H PRN Administration pain Dextrose/Sodium Ch loride 1,000 mls @ 100 m ls/hr 04/24/20 01:21 04/27/20 09:20 Dextrose 5%-Sod Chloride 0.45% IV 100 mls/hr .Q10H NYLA Administration Ondansetron HCl 4 mg 04/24/20 01:21 04/26/20 15:24 Ondansetron 2 Mg /Ml Sdv 2 Ml IVP 4 mg Q6H PRN Administration NAUSEA AND VOMITI NG No Known Allergies Allergy (Verified 04/23/20 18:52) Vitals/I&O/Wt Last Vital Signs Temp 97.9 F 04/27/20 11:35 Pulse 61 04/27/20 11:35 Resp 18 04/27/20 11:35 BP 122/75 04/27/20 11:35 Pulse Ox 99 04/27/20 11:35 04/26/20 04/27/20 04/27/20 22:59 06:59 14:59 Intake Total 846.667 / 2116.871 5156 / 1245 Output Total 450 / 1675 375 / 2050 400 / 400 Balance -450 / -675 471.667 / -203.333 845 / 845 Physical Exam Const: COMMON NORMALS: no acute distress, patient oriented x3 and alert GENERAL APPEARANCE: cooperative ORIENTATION/CONSCIOUSNESS: Yes awake OTHER: -seen ambulating in hallway HENMT: COMMON NORMALS: normocephalic, atraumatic and hearing grossly normal bilaterally HEAD & SCALP: normocephalic and atraumatic NOSE: Other nasal findings present (NG tube in place (R nare)) MOUTH: moist mucous membranes abnormal Details: parched Eye: COMMON NORMALS: Equal, round and reactive pupils present, EOMs intact bilaterally and conjunctivae normal CONJUNCTIVA: Yes conjunctivae normal PUPIL: Yes Equal, round and reactive pupils present Neck/C-Spine: COMMON NORMALS: full ROM GENERAL: Yes normal visual inspection and Yes trachea midline Resp: COMMON NORMALS: normal respiratory effort, No retractions, No use of accessory muscles and clear to auscultation bilaterally EFFORT & INSPECTION: Yes able to speak in complete sentences, Yes symmetric chest movement and No tachypneic AUSCULTATION: clear to auscultation bilaterally OTHER: -on RA Cardio: COMMON NORMALS: regular rate, regular rhythm, S1 normal heart sound present, S2 normal heart sound present and No murmurs present (Cardio) RATE: regular rate RHYTHM: regular rhythm HEART SOUNDS: S1 normal heart sound present and S2 normal heart sound present GI: COMMON NORMALS: Soft to palpation and non-tender INSPECTION: Yes abdominal distension (mild) and Yes central obesity PALPATION: Yes Soft to palpation, Yes Tenderness to palpation present (GI) (upper quadrants) Details: RLQ, No Guarding due to palpation present (GI) and No Rigid due to palpation Extremity: COMMON NORMALS: normal to inspection, full ROM and no clubbing, cyanosis or edema; negative for no pedal edema Neuro: COMMON NORMALS: patient oriented x3, moves all extremities, no focal motor deficits and no sensory deficits noted SENSORIUM/ORIENTATION: Yes alert Psych: COMMON NORMALS: mental status grossly normal, Normal thought process present, cooperative, normal affect and speech normal SPEECH: Yes normal speech THOUGHT PROCESS: Normal thought process present Skin: COMMON NORMALS: no rashes or lesions noted, no jaundice, no petechiae and no mottling GENERAL SKIN EXAM: no rashes or lesions noted Data : 04/26/20 05:41 04/26/20 05:41 A&P Assessment and plan (1) Small bowel obstruction: -noted evidence of moderate grade distal SBO, transition zone in RLQ, also noted to have adhesions -has NGT in place; reconnected to suction due to noted distention; monitor output overnight -NPO, antiemetics and pain control as needed -IVF hydration -continue to monitor vital signs -discussed case with general surgery in light of continued NGT output, transition point on imaging, pain control. Given enema -abdomen x-ray tomorrow to monitor progress Status: Acute Additional A&P Information -noted moderate gastric distention on CT -morbid obesity: BMI-33 kg/m2 -NPO due to increased distention; encourage ambulation today -DVT ppx with SCDs -Dispo: home -Code status: FULL code Attestations Medical Necessity Statement*: Patient requires hospitalization for continued management of small bowel obstruction, has NGT in place. Time Spent in Patient Care: 16 - 35 minutes (>than 50% of time spent in counselling and/or direct pt care on unit). Coding Level of Care Code Acute Brim Pouncing Machine Operator for Chg Fwd Exam Comprehensive Diagnoses Small bowel obstruction K56.609
[2020-04-28] VITALS (9 sets, daily range): BP systolic 117–138; BP diastolic 67–86; PULSE 52–68; RESP 16–20; TEMP 36.3–37.2; O2SAT 92–99
[2020-04-28] MEDS: HYDROmorphone 1 mg/mL INJ 1 mL 2 MG IVP ×3 (04:29→17:14)
[2020-04-28] MEDS: ondansetron 2 mg/ML SDV 2 mL 4 MG IVP ×2 (04:30→19:38)
[2020-04-28] MEDS: dextrose 5%-sod chloride 0.45% 1,000 ML 100 ML IV ×2 (05:43→17:56)
[2020-04-28] MEDS: famotidine 20 mg/2 mL INJ IVP ×2 (05:45→17:55)
--- NOTE | 2020-04-28 06:00 | XR_ITS ---
WS: [id number] PA chest radiograph. No priors. The lungs are clear and fully expanded. Normal cardiomediastinal structures and bony elements. An ent luisa tube is noted ending in the fundus of the stomach. There is mild gaseous dilatation of small bowel loops with several fluid levels. Early or incomplete small bowel obstruction is not excluded. Visualized organ margins are unremarkable. Bony structures a re intact. No free air. XR/XR acute abdomen series [id number] IMPRESSION: 1. Negative chest. 2. Mild gaseous distention of several small bowel loops with fluid levels. Chris y or incomplete small bowel obstruction is not excluded.
--- NOTE | 2020-04-28 14:14 | PM.PN ---
Subjective Subjective: Interval history: Last night was nauseated, but no vomiting. Minimal output from NG tube. Reports has not had a bowel movement since after the enema several days ago, and has not been passing gas. Reports he gets abdominal pain when he gets bloated and then needs to take pain medication. Vitals/I&O/Wt Last Vital Signs Temp 98.8 F 04/28/20 12:00 Pulse 52 L 04/28/20 12:00 Resp 18 04/28/20 12:00 BP 123/78 04/28/20 12:00 Pulse Ox 92 04/28/20 12:00 04/27/20 04/28/20 04/28/20 22:59 06:59 14:59 Intake Total 1196.667 / 2681.667 1000 / 3681.667 Output Total 750 / 1150 400 / 1550 Balance 446.667 / 1531.667 600 / 2131.667 Physical Exam Const: COMMON NORMALS: no acute distress and patient oriented x3 HENMT: COMMON NORMALS: oropharynx normal OTHER: NGT in place Neck/C-Spine: COMMON NORMALS: no JVD Resp: COMMON NORMALS: normal respiratory effort and clear to auscultation bilaterally AUSCULTATION: clear to auscultation bilaterally Cardio: COMMON NORMALS: no JVD, regular rhythm, S1 normal heart sound present, S2 normal heart sound present and No murmurs present (Cardio) RHYTHM: regular rhythm HEART SOUNDS: S1 normal heart sound present and S2 normal heart sound present GI: COMMON NORMALS: Soft to palpation and non-tender AUSCULTATION: Yes Hypoactive bowel sounds present PALPATION: Yes Soft to palpation Extremity: COMMON NORMALS: no joint enlargement and no pedal edema Neuro: COMMON NORMALS: patient oriented x3 and moves all extremities Skin: COMMON NORMALS: no rashes or lesions noted GENERAL SKIN EXAM: no rashes or lesions noted Data : 04/26/20 05:41 04/26/20 05:41 A&P Assessment and plan (1) Small bowel obstruction: ~300 mL NG drainage from 24hrs. Pretty much nothing this morning. Will see if can clamp NGT. He is reluctant to try any food but might try some ice chips. Still no flatus, no bowel movement since 04/26 after enema. Surgery assessment as he is still symptomatic after 5 days in the hospital. He does also say he has to get some pain medication after feeling bloated due to pain. He says he realizes that that medication may make things worse and slows things down as well. Will request for a dose of Relistor. -NPO, antiemetics and pain control as needed -IVF hydration Status: Acute Additional A&P Information -noted moderate gastric distention on CT -morbid obesity: BMI-33 kg/m2 -NPO due to increased distention; encourage ambulation. He has been trying to walk, but says that this has been requiring him to take pain medication. -DVT ppx with SCDs -Dispo: home -Code status: FULL code Attestations Medical Necessity Statement*: Continue admission for assessment management of small bowel obstruction. Coding Level of Care Code Acute Lubrication Supervisor for [place] Fwd Exam Comprehensive Diagnoses Small bowel obstruction K56.609
--- NOTE | 2020-04-28 15:07 | PM.CONSULT ---
Providers/Reason For Consult Consulting Physican/Specialty*: General Surgery Hansel Jones MD Reason for Consult*: Small bowel obstruction. Attending Physician: Juan Ruiz Primary Care Provider: Rosas Arauz MD History of Present Illness History of Present Illness Edgar Oconnell is a 49 year old male admitted 5 days ago after developing some supraumbilical abdominal pain and some nausea last Tuesday. He had eaten some pizza and some mixed nuts prior to this, but has never had issues like this before. He eventually ended up in the emergency room where a CAT scan showed changes consistent with a distal and at least a partial small bowel obstruction. He had a nasogastric tube placed and has waxed and waned in the hospital, but has never gotten his nasogastric tube removed. It has been clamped when he gets better and is up ambulating, but then he always seems to eventually get worse again. He says he has only passed flatus once since he has been in the hospital. He has been on narcotics when his pain gets bad, but currently denies any pain. The patient has had a colonoscopy about a month ago and says that he thinks a small polyp was removed and he told me to eat fiber, possibly indicative of some diverticulosis. He denies any changes in bowel habits prior to this, but says that my intestinal tract has always been a little slow and I only have had a bowel movement 2 or 3 times a week nearly my entire life. He has no family history of any gastrointestinal neoplasia. He has not had any food intolerances and as mentioned, has not had any progressive symptoms of abdominal pain after eating. He started eating more mixed nuts after he was told to increase his fiber intake. He also tried some Benefiber, but it gave him more loose stool than he liked and so he stopped that. He has recently started a dieting program where he fasts after dinner until the following afternoon when he has a small meal and then a larger meal that night. This is the first time he has ever had abdominal symptoms with this and has had no other medical changes recently. Interestingly, the patient says that Dr. Arauz thought he could feel some type of abdominal mass on the right side of his abdomen within the last couple of months prior to his colonoscopy. It apparently was not noticeable on a subsequent exam, making everyone think it may have been stool at that time. Review of Systems General: Reports: 10 or more systems reviewed and unremarkable except in HPI and below Const: Reports: change in weight ( I've been losing a little weight since I started dieting using the fasting); Denies: fever(s) or night sweats GI: Reports: abdominal pain, nausea, constipation ( I have only had bowel movements once every 2 or 3 days forever ) and other (Abdominal mass possibly felt recently by Dr. Arauz); Denies: vomiting Meds/Allergies Home Medications and Allergies Home Medications Medication Instructions Recorded Confirmed Last Taken Type Fish Oil 1 cap PO DAILY 04/23/20 04/23/20 04/23/20 History fluticasone propionate [Flonase] 1 spray INTRANASAL Q12H 04/23/20 04/23/20 04/23/20 History lubulvyz-nck-yydqkqz gluconate 15 ml PO DAILY 04/23/20 04/23/20 04/23/20 History [Multi-Maxwell] Allergies Allergy/AdvReac Type Severity Reaction Status Date / Time No Known Allergies Allergy Verified 04/23/20 18:52 Current Medications Current Medications Generic Name Dose Route Start Last Admin Trade Name Freq PRN Reason Stop Dose Admin Calcium Carbonate 500 mg 04/26/20 18:08 04/27/20 09:20 Calcium Carbonate 500 Mg Chew Tablet PO 500 mg Q4H PRN Administration INDIGESTION Famotidine 20 mg 04/26/20 18:15 04/28/20 05:45 Famotidine 20 Mg/2 Ml Inj IVP 20 mg Q12H NYLA Administration Hydromorphone HCl 2 mg 04/24/20 01:21 04/28/20 11:28 Hydromorphone 1 Mg/Ml Inj 1 Ml IVP 2 mg Q4H PRN Administration pain Dextrose/Sodium Chloride 1,000 mls @ 100 mls/hr 04/24/20 01:21 04/28/20 05:43 Dextrose 5%-Sod Chloride 0.45% IV 100 mls/hr .Q10H NYLA Administration Ondansetron HCl 4 mg 04/24/20 01:21 04/28/20 04:30 Ondansetron 2 Mg/Ml Sdv 2 Ml IVP 4 mg Q6H PRN Administration NAUSEA AND VOMITING PFSH Acute PFSH: Medical History (Updated 04/28/20 @ 15:45 by Hansel Jones MD) Colon polyps GERD (gastroesophageal reflux disease) Never treated formally medically and it got a lot better when I started my current diet plan with fasting Nephrolithiasis I passed one kidney stone in the past Surgical History No pertinent past surgical history Family History Family/Other Cancer Uncle had diagnosis of cholangiocarcinoma Social History Smoking and tobacco status: never smoked Alcohol intake: current Alcohol intake frequency: few times a week Alcohol type: beer Household members: spouse Housing: House Marital status: Vitals/I&O/Wt Last Vital Signs Temp 98.8 F 04/28/20 12:00 Pulse 52 L 04/28/20 12:00 Resp 18 04/28/20 12:00 BP 123/78 04/28/20 12:00 Pulse Ox 92 04/28/20 12:00 04/28/20 04/28/20 04/28/20 06:59 14:59 22:59 Intake Total 1000 / 3681.667 Output Total 400 / 1550 Balance 600 / 2131.667 Physical Exam Narrative: EXAM NARRATIVE: The patient was encountered in his hospital room. He has a nasogastric tube in place but it is currently clamped. He does not appear to be in any distress. The pupils are equal. No carotid bruits are heard. The lungs are clear anteriorly. The heart is regular. The abdomen is mildly obese but is soft. He has a little bit of firmness just to the right side of the umbilicus but the area is not well-defined and is nontender. Bowel sounds are very infrequent. Extremities reveal no edema. Neurologically the patient appears to be grossly intact. Data Imaging^: CT Abd/Pel: Radiologist's impression: CT abdomen/pelvis 04/23/2020 IMPRESSION: 1. Findings consistent with moderate grade distal small-bowel obstruction transition zone right lower quadrant believed secondary to adhesions. 2. Small amount of free fluid in the pouch of [place]. 3. Moderate gastric distention. 4. Evidence of antecedent granulomatous disease. A&P Assessment and plan (1) Small bowel obstruction: CT on presentation reviewed. The patient does have what appears to be at least a high-grade partial small bowel obstruction that I think has a transition point just to the right side of the umbilicus. He has not had any detailed imaging since, but plain films and his lack of lasting clinical progress are indicative of a continuing problem. The patient has never had abdominal surgery before, making adhesions very unlikely unless he has had some type of previous but seemingly unknown inflammatory/traumatic event. He has no obvious abdominal wall hernias but could have an internal hernia. We also discussed small bowel neoplasia, obstructions from things like a Meckel's diverticulum, etc. I have suggested to him that if he does not improve rapidly, we consider laparoscopy sometime in the next couple of days. He seems agreeable to that plan. I will be happy to continue following the patient while he is hospitalized. Status: Acute (2) Abdominal mass: The patient seems to have an ill-defined, nontender firmness on the right side of the abdomen adjacent to the umbilicus; it is difficult to say that this is an actual mass and may just be a reflection of how the patient's abdominal wall is built. I cannot see an obvious source for this on his CAT scan, but to my reading, it almost seems as if the obstruction may be in this area. Interestingly, he says Dr. Moiz Arauz thought he could feel something in that region a couple of months ago, but it had not been felt by Dr. Rizwana Chavez subsequently prior to his colonoscopy. Status: Acute Consult Attestations Medical Necessity Statement: See admitting service's notation. 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
[2020-04-28] MEDS: methylnaltrexone 12 /0.6 mL INJ 12 MG SUBCUT (16:07)
[2020-04-29] VITALS (21 sets, daily range): BP systolic 114–147; BP diastolic 72–86; PULSE 56–84; RESP 16–21; TEMP 36.3–37.2; O2SAT 92–99
[2020-04-29] MEDS: ondansetron 2 mg/ML SDV 2 mL 4 MG IVP (01:41)
[2020-04-29] MEDS: HYDROmorphone 1 mg/mL INJ 1 mL 2 MG IVP ×2 (01:42→09:16)
[2020-04-29] MEDS: dextrose 5%-sod chloride 0.45% 1,000 ML 100 ML IV (01:55)
[2020-04-29 05:26] LABS: Alanine Aminotransferase 191 U/L (0-41); Albumin Level 3.8 g/dL (3.5-5.2); Alkaline Phosphatase 98 IU/L (40-130); Anion Gap 13.5 (5-19); Aspartate Amino Transferase 120 U/L (0-40); Blood Urea Nitrogen 14 mg/dL (6-20); Calcium 8.9 mg/dL (8.5-10.5); Carbon Dioxide 27 mmol/L (22-29); Chloride 101 mmol/L (98-107); Globulin 2.6 g/dL (1.3-4.6); Glomerular Filtration Rate 101.9 mL/min (90-130); Glucose 111 mg/dL (65-115); Osmolality Calculated 287 mOsm/kg (285-295); Potassium 3.5 mmol/L (3.5-5.1); Sodium 138 mmol/L (136-145); Total Bilirubin 1.6 mg/dL (0.15-1.2); Total Protein 6.4 g/dL (6.6-8.7)
[2020-04-29] MEDS: famotidine 20 mg/2 mL INJ IVP ×2 (06:36→18:54)
--- NOTE | 2020-04-29 07:52 | PM.PN ---
Subjective Subjective: Interval history: The patient had to have his NG tube hooked up again last night due to abdominal distention. He still is not passing any flatus or stool. Vitals/I&O/Wt Last Vital Signs Temp 98.0 F 04/29/20 07:09 Pulse 57 L 04/29/20 07:09 Resp 18 04/29/20 07:09 BP 124/83 04/29/20 07:09 Pulse Ox 98 04/29/20 07:09 04/28/20 04/29/20 04/29/20 22:59 06:59 14:59 Intake Total 1999.333 798.333 / 2798.333 Output Total 0 / 375 375 / 375 Balance 1999 242.333 423.333 / 2423.333 Physical Exam Narrative: EXAM NARRATIVE: His exam remains about the same. The ill-defined firmness to the right side of the umbilicus does not seem quite so prominent today. Data : 04/26/20 05:41 04/29/20 03:30 A&P Assessment and plan (1) Small bowel obstruction: The patient continues to make no significant process. After our discussion yesterday, he had a discussion with his and they would like to proceed with laparoscopy to see if we can identify the problem. I discussed surgical risks of bleeding, infection, internal organ injury, etc. I also made him aware that depending on what we find, an open procedure may be necessary. He seems to understand and agrees to proceed. Status: Acute (2) Abdominal mass: The patient seems to have an ill-defined, nontender firmness on the right side of the abdomen adjacent to the umbilicus; it is difficult to say that this is an actual mass and may just be a reflection of how the patient's abdominal wall is built. I cannot see an obvious source for this on his CAT scan, but to my reading, it almost seems as if the obstruction may be in this area. Interestingly, he says Dr. Moiz Arauz thought he could feel something in that region a couple of months ago, but it had not been felt by Dr. Rizwana Chavez subsequently prior to his colonoscopy. Status: Acute Attestations Medical Necessity Statement*: See admitting service's notation. 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
--- NOTE | 2020-04-29 14:39 | ANES.PREANE2 ---
Pre-Anesthetic Assessment Pre-Anesthetic Assessment: Height/Weight: Height 1.78 m Weight 104.326 kg Temp Pulse Resp BP Pulse Ox 98.3 F 56 L 18 128/83 96 04/29/20 11:12 04/29/20 11:12 04/29/20 11:12 04/29/20 11:12 04/29/20 11:12 Preop Diagnosis: SBO Proposed Procedure: Operation Date: 04/29/20 15:00 Proposed Procedures p Laparoscopy w/ possible adhesiolysis, possible open procedure(Not Applicable) - Hansel Jones MD Familial anesthetic complications: none Was Beta June taken within 24 hours: N/A Last intake: Intake Last Liquid Date 04/28/20 Last Liquid Time 16:00 Last Solid Date 04/23/20 Last Solid Time 14:30 Social: Social History: No alcohol and No tobacco Exam: Pre-Anes Outpt Exam: alert, oriented x 3, clear to auscultation bilaterally and regular rate & rhythm Airway: Cervical ROM: WNL MP: 3 Dentition: False GI: Comments: ?SBO w/ NG tube in place Anesthetic Plan: ASA status: 2 Anesthesia: General Other: RSI Risk of > 500 ml blood loss (7ml/kg in children): No Meds/Allergies Current Medications: Current Medications Generic Name Dose Route Start Last Admin Trade Name Freq PRN Reason Stop Dose Admin Calcium Carbonate 500 mg 04/26/20 18:08 04/27/20 09:20 Calcium Carbonat e 500 Mg Chew Tabl et PO 500 mg Q4H PRN Administration INDIGESTION Famotidine 20 mg 04/26/20 18:15 04/29/20 06:36 Famotidine 20 Mg /2 Ml Inj IVP 20 mg Q12H NYLA Administration Hydromorphone HCl 2 mg 04/24/20 01:21 04/29/20 09:16 Hydromorphone 1 Mg/Ml Inj 1 Ml IVP 2 mg Q4H PRN Administration pain Dextrose/Sodium Ch loride 1,000 mls @ 125 m ls/hr 04/24/20 01:21 04/29/20 01:55 Dextrose 5%-Sod Chloride 0.45% IV 100 mls/hr .Q8H NYLA Administration Ondansetron HCl 4 mg 04/24/20 01:21 04/29/20 01:41 Ondansetron 2 Mg /Ml Sdv 2 Ml IVP 4 mg Q6H PRN Administration NAUSEA AND VOMITI NG Additional Medication Information: Active Medications Generic Name Dose Route Start Last Admin Trade Name Freq PRN Reason Stop Dose Admin Calcium Carbonate 500 mg 04/26/20 18:08 04/27/20 09:20 Calcium Carbonat e 500 Mg Chew Tabl et PO 500 mg Q4H PRN Administration INDIGESTION Famotidine 20 mg 04/26/20 18:15 04/27/20 06:34 Famotidine 20 Mg /2 Ml Inj IVP 20 mg Q12H NYLA Administration Hydromorphone HCl 2 mg 04/24/20 01:21 04/27/20 11:32 Hydromorphone 1 Mg/Ml Inj 1 Ml IVP 2 mg Q4H PRN Administration pain Dextrose/Sodium Ch loride 1,000 mls @ 100 m ls/hr 04/24/20 01:21 04/27/20 09:20 Dextrose 5%-Sod Chloride 0.45% IV 100 mls/hr .Q10H NYLA Administration Ondansetron HCl 4 mg 04/24/20 01:21 04/26/20 15:24 Ondansetron 2 Mg /Ml Sdv 2 Ml IVP 4 mg Q6H PRN Administration NAUSEA AND VOMITI NG No Known Allergies Allergy (Verified 04/23/20 18:52) PFSH Anesthesia PFSH: Medical History (Updated 04/28/20 @ 15:45 by Hansel Jones MD) Colon polyps GERD (gastroesophageal reflux disease) Never treated formally medically and it got a lot better when I started my current diet plan with fasting Nephrolithiasis I passed one kidney stone in the past Surgical History No pertinent past surgical history Family History Family/Other Cancer Uncle had diagnosis of cholangiocarcinoma Social History Smoking and tobacco status: never smoked Alcohol intake: current Alcohol intake frequency: few times a week Alcohol type: beer Household members: spouse Housing: House Marital status: Data Anesthesia CBC & Chem 7: 04/26/20 05:41 04/29/20 03:30 Other Labs: Laboratory Results - last 48 hr 04/29/20 03:30 Sodium 138 Potassium 3.5 Chloride 101 Carbon Dioxide 27 Anion Gap 13.5 BUN 14 Creatinine 0.8 GFR Calculation 101.9 Glucose 111 Calculated Osmolality 287 Calcium 8.9 Total Bilirubin 1.6 H AST 120 H ALT 191 H Alkaline Phosphatase 98 Total Protein 6.4 L Albumin 3.8 Globulin 2.6 Cardiac Studies: No Data to Display
[2020-04-29] MEDS: sodium chloride 0.9% 1,000 ML 30 ML IV (15:10)
--- NOTE | 2020-04-29 16:16 | P.OP_ITS ---
Operative Report Date of procedure: April 29, 2020 Pre-op Diagnosis: Small bowel obstruction. Post-op Diagnosis: Same, secondary to adhesion forming an internal hernia. Procedure Done: Laparoscopy with laparoscopic adhesiolysis. Pathology: none sent Surgeon: Hansel Jones Anesthesia: General Estimated blood loss (mL): 5 Complications: None. Condition: stable Disposition: PACU Procedure: The patient was brought to the operating room and was placed in a supine position on the operating room table. General endotracheal anesthesia was induced. A Giang catheter was inserted by nursing. The abdomen was prepped and draped in a sterile fashion. A small incision was made in the superior aspect of the umbilicus. Blunt dissection was carried out down to the fascia which was grasped with a Diana clamp. A stay suture of 0 Vicryl was placed on either side of the midline and the midline fascia was incised. The underlying peritoneum was opened bluntly and the Bach port was placed directly into the peritoneal cavity and was held in place with the inflatable balloon. The abdomen was insufflated with carbon dioxide and the laparoscope was used to inspect the peritoneal cavity. The patient clearly had dilated loops of small bowel proximally and decompressed loops of small bowel distally. In addition, there was a moderate amount of straw-colored fluid in the peritoneal cavity. The colon also appeared to be decompressed. Two 5 mm ports were placed in the left lower quadrant under direct vision. By following the decompressed ileum proximally using bowel gr aspers, eventually an adhesion was found from the transverse colon to the sigmoid colon. This fairly tight adhesive band had created a partial obstruction in the mid small bowel as evidenced by significantly dilated bowel proximally and less dilated bowel distally which eventually turned into completely decompressed small bowel. The bowel around the area was somewhat hemorrhagic but was clearly viable. The adhesive band was carefully cut using laparoscopic scissors with a minimum of cautery to maintain hemostasis. Irrigation was carried out in the abdominal cavity and no additional issues were seen. Once again, the small bowel was run from the ileocecal valve proximally and clearly there were small bowel contents moving distally within the bowel that had been decompressed prior. Again, the the site of the previous adhesion across the small bowel was again identified and the bowel was clearly patent and viable at that point. After all of the additional fluid had been suctioned out of the abdomen the Bach port was removed from the umbilical port site and the stay sutures of Vicryl were tied to each other at the umbilicus, creating an airtight closure. The remaining ports were removed from the abdominal wall, evacuating the remaining pneumoperitoneum in the process. All skin incisions were closed using inverted interrupted sutures of 4-0 Vicryl. Benzoin and Steri-Strips were placed over the incisions and sterile Band-Aids followed. The patient's Giang catheter was removed prior to his exit from the operating room and he was taken to the recovery room in stable condition postoperatively.
--- NOTE | 2020-04-29 16:27 | SUR.PHASEI ---
NGT right nare, intact and secure
--- NOTE | 2020-04-29 16:35 | SUR.PHASEI ---
pt awake. sole varela at bedside. pt talking and answer questions. O2 sat at 95% at room air. no 02 needed
--- NOTE | 2020-04-29 19:56 | PM.PACU ---
PACU note Post-Anesthesia Exam: awake and vital signs stable Disposition: back to floor
[2020-04-29] MEDS: levalbuterol 0.63 mg/3 mL Neb INHALATION (20:02)
--- NOTE | 2020-04-29 20:34 | PM.PN ---
Subjective Subjective: Interval history: Reports continued lack of improvement. No flatus, no bowel movement. No appetite. No overnight he was reconnected to LIS on NG, with copious output. Vitals/I&O/Wt Last Vital Signs Temp 97.7 F 04/29/20 17:05 Pulse 66 04/29/20 20:08 Resp 18 04/29/20 20:04 BP 132/80 04/29/20 17:05 Pulse Ox 95 04/29/20 20:04 04/29/20 04/29/20 04/29/20 06:59 14:59 22:59 Intake Total 798.333 / 2798.333 1250 / 1250 Output Total 375 / 375 1075 / 1075 210 / 1285 Balance 423.333 / 2423.333 -1075 / -1075 1040 / -35 Physical Exam Const: COMMON NORMALS: no acute distress and patient oriented x3 HENMT: COMMON NORMALS: oropharynx normal OTHER: NGT in place Neck/C-Spine: COMMON NORMALS: no JVD Resp: COMMON NORMALS: normal respiratory effort and clear to auscultation bilaterally AUSCULTATION: clear to auscultation bilaterally Cardio: COMMON NORMALS: no JVD, regular rhythm, S1 normal heart sound present, S2 normal heart sound present and No murmurs present (Cardio) RHYTHM: regular rhythm HEART SOUNDS: S1 normal heart sound present and S2 normal heart sound present GI: COMMON NORMALS: Soft to palpation AUSCULTATION: Yes Hypoactive bowel sounds present PALPATION: Yes Soft to palpation Extremity: COMMON NORMALS: no joint enlargement and no pedal edema Neuro: COMMON NORMALS: patient oriented x3 and moves all extremities Skin: COMMON NORMALS: no rashes or lesions noted GENERAL SKIN EXAM: no rashes or lesions noted Urinary Catheter Management^: Giang Latex: Cath Placed During This Visit: yes, but has since been removed by the nurse Urinary Catheter Date of Insertion: 04/29/20 Urinary Catheter Time of Insertion: 15:24 Date Urinary Catheter Removed: 04/29/20 Time Urinary Catheter Discontinued: 16:04 Data : 04/26/20 05:41 04/29/20 03:30 A&P Assessment and plan (1) Small bowel obstruction: Without improvement in symptoms, with persistent output from NG tube, elected for additional evaluation and treatment by laparoscopic procedure with surgery. Later day underwent laparoscopy with adhesiolysis for small bowel obstruction with adhesion forming an internal hernia. Status: Acute Additional A&P Information -noted moderate gastric distention on CT -morbid obesity: BMI-33 kg/m2 -NPO due to increased distention; encourage ambulation. He has been trying to walk, but says that this has been requiring him to take pain medication. -DVT ppx with SCDs -Dispo: home -Code status: FULL code Attestations Medical Necessity Statement*: Continue admission for assessment management following laparoscopic adhesiolysis for nonresolving small bowel obstruction. 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
[2020-04-29 21:01] LABS: Glucose Point of Care 107 mg/dL (70-110)
[2020-04-30] VITALS (8 sets, daily range): BP systolic 118–123; BP diastolic 69–97; PULSE 63–74; RESP 16–18; TEMP 36.6–37.1; O2SAT 93–99
[2020-04-30] MEDS: dextrose 5%-sod chloride 0.45% 1,000 ML 125 ML IV (03:59)
[2020-04-30 05:28] LABS: Basophils % 0.3 %; Eosinophils % 0.6 %; Hemoglobin 13.2 g/dL (11.7-16.6); Lymphocytes # 1.6 10^3/uL (0.8-4.8); Lymphocytes % 23.2 %; Mean Corpuscular HGB Conc 33.8 g/dL (30.0-36.0); Mean Corpuscular Hemoglobin 31.1 pg (28.0-34.0); Mean Corpuscular Volume 91.8 fL (80-94); Mean Platelet Volume 8.6 fL (7.4-10.4); Monocytes # 0.8 10^3/uL (0.2-0.9); Monocytes % 11.7 %; Neutrophils # 4.42 10^3/uL (1.8-7.7); Neutrophils % 64.1 %; Nucleated Red Blood Cells % 0 %; Platelet Count 248 10^3/cmm (130-400); Red Blood Count 4.25 10^6/uL (4.1-5.3); Red Cell Distribution Width 11.8 % (12.1-15.1); White Blood Count 6.9 10^3/uL (4.0-10.0)
[2020-04-30] MEDS: famotidine 20 mg/2 mL INJ IVP (06:03)
[2020-04-30] MEDS: heparin 5,000 unit/mL INJ 1 mL 5000 UNIT SUBCUT (06:03)
[2020-04-30 06:08] LABS: Alanine Aminotransferase 136 U/L (0-41); Albumin Level 3.5 g/dL (3.5-5.2); Alkaline Phosphatase 99 IU/L (40-130); Anion Gap 12.6 (5-19); Aspartate Amino Transferase 49 U/L (0-40); Blood Urea Nitrogen 11 mg/dL (6-20); Calcium 8.5 mg/dL (8.5-10.5); Carbon Dioxide 24 mmol/L (22-29); Chloride 108 mmol/L (98-107); Globulin 2.2 g/dL (1.3-4.6); Glucose 102 mg/dL (65-115); Osmolality Calculated 292 mOsm/kg (285-295); Potassium 3.6 mmol/L (3.5-5.1); Sodium 141 mmol/L (136-145); Total Bilirubin 0.5 mg/dL (0.15-1.2); Total Protein 5.7 g/dL (6.6-8.7)
--- NOTE | 2020-04-30 07:09 | ANE.PACU2 ---
Inpatient post-anesthesia follow up: Airway intact: Yes Vital signs: Temperature 97.9 F Pulse Rate [Monito r] 62 Pulse Rate 66 Respiratory Rate 17 Blood Pressure [Le ft Arm] 136/87 Blood Pressure 119/97 Pulse Oximetry 93 Oxygen Delivery Me thod Room Air Oxygen Flow Rate Fraction of Inspir ed Oxygen Hydration adequate: Yes Nausea and vomiting: No Pain level: 3 Mental status: Baseline
--- NOTE | 2020-04-30 07:58 | P.PN_ITS ---
Subjective Subjective: Interval history: The patient feels perfect today. He is passing flatus and having bowel movements following his laparoscopic adhesiolysis yesterday. Vitals/I&O/Wt Last Vital Signs Temp 98.7 F 04/30/20 07:55 Pulse 65 04/30/20 07:55 Resp 16 04/30/20 07:55 BP 118/69 04/30/20 07:55 Pulse Ox 97 04/30/20 07:55 04/29/20 04/30/20 04/30/20 22:59 06:59 14:59 Intake Total 1250 / 2250 Output Total 210 / 2285 1000 / 2285 Balance 1040 / -35 -1000 / -35 Physical Exam Narrative: EXAM NARRATIVE: Bowel sounds are present. The patient has some small contusions around his laparoscopic incisions, but everything appears to be healing well. Urinary Catheter Management^: Giang Latex: Cath Placed During This Visit: yes, but has since been removed by the nurse Urinary Catheter Date of Insertion: 04/29/20 Urinary Catheter Time of Insertion: 15:24 Date Urinary Catheter Removed: 04/29/20 Time Urinary Catheter Discontinued: 16:04 Data : 04/30/20 04:41 04/30/20 04:41 A&P Assessment and plan (1) Small bowel obstruction: Status post laparoscopic adhesiolysis on 04/29/2020. The patient's bowel function has already returned. Discontinue nasogastric tube. Clear liquid diet. If the patient does well with clear liquids I will advance his diet at noon and he may be able to be discharged by the end of the day today. Status: Acute (2) Abdominal mass: No evidence for any kind of a gastric wall or intra-abdominal mass on laparoscopy. I suspect I was either feeling a dilated loop of small bowel or perhaps part of the rectus muscle that may have been spasming, etc. Status: Acute Attestations Medical Necessity Statement*: See admitting service's notation. 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
[2020-04-30] MEDS: levalbuterol 0.63 mg/3 mL Neb INHALATION ×2 (08:05→11:32)
--- NOTE | 2020-04-30 11:09 | PM.DCS ---
Discharge Providers Date of Admission: 04/23/20 22:10 Date of Discharge: April 30, 2020 Attending Provider at Admission: Nadia Buchanan MD Attending Provider at Discharge: Juan Ruiz Primary Care Provider: Rosas Arauz MD Diagnoses at Discharge Discharge Diagnosis (1) Small bowel obstruction: Status: Acute (2) Abdominal mass: Status: Acute Reason for Visit Reason for Visit: mid abdominal pain Hospital Course Hospital Course 49-year-old gentleman without significant past medical history was admitted after presenting with abdominal pain, with finding of small bowel obstruction on assessment including CT abdomen pelvis. Did not improve with conservative measures with bowel rest, NG suction, bowel regimen. Underwent laparoscopic-assisted with adhesiolysis due to adhesions forming an internal hernia on 04/29. Doing very well postoperatively, with multiple bowel movements, tolerating clear liquids so far, diet advanced to GI soft by surgery, and if tolerating will be returning home today with outpatient follow-up with surgery. Physical Exam Const: COMMON NORMALS: no acute distress, patient oriented x3 and alert GENERAL APPEARANCE: comfortable ORIENTATION/CONSCIOUSNESS: Yes awake OTHER: Reports he is feeling much much better, feels in good shape to return home. HENMT: COMMON NORMALS: oropharynx normal Neck/C-Spine: COMMON NORMALS: no JVD Resp: COMMON NORMALS: normal respiratory effort and clear to auscultation bilaterally AUSCULTATION: clear to auscultation bilaterally Cardio: COMMON NORMALS: no JVD, regular rhythm, S1 normal heart sound present, S2 normal heart sound present and No murmurs present (Cardio) RHYTHM: regular rhythm HEART SOUNDS: S1 normal heart sound present and S2 normal heart sound present GI: COMMON NORMALS: Normal to inspection, nondistended, normoactive bowel sounds present, Soft to palpation and non-tender PALPATION: Yes Soft to palpation Extremity: COMMON NORMALS: no joint enlargement and no pedal edema Neuro: COMMON NORMALS: patient oriented x3 and moves all extremities SENSORIUM/ORIENTATION: Yes alert Skin: COMMON NORMALS: no rashes or lesions noted GENERAL SKIN EXAM: no rashes or lesions noted Urinary Catheter Management^: Giang Latex: Cath Placed During This Visit: yes, but has since been removed by the nurse Urinary Catheter Date of Insertion: 04/29/20 Urinary Catheter Time of Insertion: 15:24 Date Urinary Catheter Removed: 04/29/20 Time Urinary Catheter Discontinued: 16:04 Discharge Data Data Completed and Pending: Completed Studies During Hospitalization Category Date Time Status CT abdomen pelvis w con* [id number] Urge nt Cat Scan 04/23/20 19:59 Completed XR abdomen 1V* [id number] Routine Exams 04/26/20 08:00 Completed XR acute abdomen series [id number] Routi ne Exams 04/25/20 10:59 Completed XR acute abdomen series [id number] Routi ne Exams 04/28/20 06:00 Completed XR chest 1V [id number] Routine Exams 04/23/20 23:57 Completed Pending at discharge Category Date Time Status ES surgery / GI i mages Routine Exams 04/29/20 14:37 Taken Complete Blood Co unt w/Auto AM LABS Lab 05/01/20 04:00 Ordered Comprehensive Met abolic Panel AM LA BS Lab 05/01/20 04:00 Ordered Labs from last 24 hours 04/30/20 04/30/20 04/29/20 04:41 04:41 20:54 WBC 6.9 RBC 4.25 Hgb 13.2 Hct 39.0 L MCV 91.8 MCH 31.1 MCHC 33.8 RDW 11.8 L Plt Count 248 MPV 8.6 Neut % (Auto) 64.1 Lymph % (Auto) 23.2 [place] % (Auto) 11.7 Eos % (Auto) 0.6 Baso % (Auto) 0.3 Neut # (Auto) 4.42 Lymph # (Auto) 1.6 [place] # (Auto) 0.8 Eos # (Auto) 0.0 Baso # (Auto) 0.0 Nucleated RBC % (a uto) 0 Nucleated RBCs # 0.0 Sodium 141 Potassium 3.6 Chloride 108 H Carbon Dioxide 24 Anion Gap 12.6 BUN 11 Creatinine 0.9 GFR Calculation 89.0 L Glucose 102 POC Glucose 107 Calculated Osmolal ity 292 Calcium 8.5 Total Bilirubin 0.5 AST 49 H ALT 136 H Alkaline Phosphata se 99 Total Protein 5.7 L Albumin 3.5 Globulin 2.2 Vitals: Last Vital Signs Temp 98.7 F 04/30/20 07:55 Pulse 70 04/30/20 08:12 Resp 18 04/30/20 08:08 BP 118/69 04/30/20 07:55 Pulse Ox 97 04/30/20 08:08 Discharge Plan Discharge Patient Disposition: Home Condition: Stable Prescriptions: Continued Flonase 50 mcg/actuation [place],Suspension 1 spray INTRANASAL Q12H RF: 0 Multi-Maxwell 9 mg iron/15 mL Liquid 15 ml PO DAILY RF: 0 Fish Oil 1 cap PO DAILY RF: 0 Referrals: Hansel Jones MD [Physician] - 2 weeks (Nursing: Please call Dr. Jones's office ([phone]) and make an appointment for the patient to be seen in 10-14 days.) Rosas Arauz MD [Primary Care Provider] - 4-7 days Discharge Diet: Advance as tolerated Discharge Activity: Limit activity as instructed Activity Restrictions/Additional Instructions: 1. Appointment to see Dr. Jones in 10-14 days. 2. Leave Steri-Strip(s) on as discussed, may shower. 3. May use ibuprofen and/or acetaminophen for discomfort if needed as discussed. No lifting over 20 pounds, no repetitive bending or twisting, no strenuous pushing / pulling or other heavy activity. Ambulate regularly. May go up and down steps if needed. Discharge Attestations Time Spent in Discharge Care*: greater than 30 min Quality Metrics Clinical Quality Measures During this hospital stay, did patient experience: None Coding Level of Care Code Acute [facility] Specialist for [facility] Fwd Diagnoses Small bowel obstruction K56.609 Abdominal mass R19.00
--- NOTE | 2020-04-30 13:53 | PC.NURSE ---
discharge paperwork gone over with pt no questions or concerns at this time, pt was informed on how to contact this nurse if any questions arise. iv taken out and walked to surgical services where picked him up.
== END 2020-04-30 13:45 | disposition home or self-care (01) | DRG 337 ==
LOC: ER 21:59 → MEDSURG 23:16
PROVIDERS: Family Medicine; Physician Assistant; Surgery; Admitting Provider Internal Medicine; Emergency Provider Emergency Medicine; PCP Family Medicine; Visit Provider Internal Medicine
PROC: 0DNL4ZZ Release Transverse Colon, Percutaneous Endoscopic Approach (ICD-10-PCS; CPT 49320; principal; 2020-04-29 15:00)
PROC: 0DNL4ZZ Release Transverse Colon, Percutaneous Endoscopic Approach (ICD-10-PCS; 2020-04-29 15:00)
DX: K56.51 Intestinal adhesions [bands], with partial obstruction (principal); F10.10 Alcohol abuse, uncomplicated; E66.01 Morbid (severe) obesity due to excess calories; Z68.33 Body mass index [BMI] 33.0-33.9, adult; K21.9 Gastro-esophageal reflux disease without esophagitis; Z87.442 Personal history of urinary calculi
CPT/HCPCS: 12345; 36415; 36416; 71045; 74018; 74022; 74177; 80048; 80053; 81001; 82962; 83690; 85025; 94640; 96372; 96375; 99282; J0131; J0330; J0690; J1100; J1170; J1644; J1885; J2212; J2405; J2704; J2710; J3010; J3490; J7030; J7614; J7799; Q9967

== ENCOUNTER → 2021-12-01 13:34 | Outpatient (BNVA) | payer OTHER, SELFPAY | PROVIDERS: PCP Family Medicine; Visit Provider Family Medicine | DX: Z00.00 Encounter for general adult medical examination without abnormal findings (principal); Z13.220 Encounter for screening for lipoid disorders; R35.0 Frequency of micturition; Z12.5 Encounter for screening for malignant neoplasm of prostate | CPT/HCPCS: 80053; 80061; 84153; 85025 ==

== ENCOUNTER → 2023-04-14 14:04 | Outpatient (BNVA) | payer OTHER, SELFPAY | PROVIDERS: PCP Family Medicine; Visit Provider Family Medicine | DX: Z00.00 Encounter for general adult medical examination without abnormal findings (principal); Z51.81 Encounter for therapeutic drug level monitoring; Z13.220 Encounter for screening for lipoid disorders; R73.09 Other abnormal glucose; Z12.5 Encounter for screening for malignant neoplasm of prostate | CPT/HCPCS: 80053; 80061; 83036; 84153; 85025 ==

== ENCOUNTER → 2024-04-02 14:11 | Outpatient (BNVA) | payer OTHER, SELFPAY | PROVIDERS: PCP Family Medicine; Visit Provider Family Medicine | DX: Z12.5 Encounter for screening for malignant neoplasm of prostate (principal); Z00.00 Encounter for general adult medical examination without abnormal findings; Z51.81 Encounter for therapeutic drug level monitoring; Z13.220 Encounter for screening for lipoid disorders; E55.9 Vitamin D deficiency, unspecified; R73.09 Other abnormal glucose | CPT/HCPCS: 80053; 80061; 82306; 83036; 84153; 85025 ==

== ENCOUNTER → 2024-06-19 09:54 | Outpatient (BNVA) | payer OTHER, SELFPAY | PROVIDERS: PCP Family Medicine; Visit Provider Family Medicine | DX: R73.09 Other abnormal glucose (principal) | CPT/HCPCS: 80053 ==

== ENCOUNTER 2024-10-24 15:04 | Outpatient (CLI) | payer OTHER, SELFPAY ==
--- NOTE | 2024-10-24 15:11 | XR_ITS ---
WS: [id number] Exam: XR cervical spine 3V* [id number] Date/Time of Exam: 10/24/2024 3:30 PM Reason For Exam: Cervical radiculopathy No acute fracture. Minimal facet DJD. The disc spaces are preserved. There is straightening. Paraspinal soft tissues appear normal. The dens is intact. XR/XR cervical spine 3V* [id number] IMPRESSION: 1. Slight degenerative change and straightening.
== END 2024-10-24 15:05 | disposition home or self-care (01) ==
PROVIDERS: PCP Family Medicine; Visit Provider Family Medicine
DX: M54.12 Radiculopathy, cervical region (principal); R93.7 Abnormal findings on diagnostic imaging of other parts of musculoskeletal system
CPT/HCPCS: 72040